=== PATIENT | female | born 1965 | race African-American/Black ===

== ENCOUNTER 2016-11-30 13:00 | Inpatient (IN) | payer MEDICAID, OTHER ==
[~2016-11-30] VITALS: Ht 160 cm; Wt 129.3 kg
[~2016-11-30 13:00] MED LIST: FLUCONAZOLE100 MG ORAL; HYDRALAZINE HCL50 MG ORAL; LEVAQUIN750 MG ORAL; METRONIDAZOLE500 MG ORAL; TRAMADOL HCL50 MG ORAL
[2016-11-30 13:15] VITALS: BP 167/104
[2016-11-30] MEDS ORDERED: Morphine Sulfate 4mg/ml Inj IVP ONE ×3 (13:45→19:45)
--- NOTE | 2016-11-30 14:11 | Emergency Room Report ---
History of Present Illness General Chief Complaint: Abdominal Pain Source: Patient Present Illness HPI 51-year-old female history of hypertension, bowel perforation in 2016, ventral hernia p/w abdominal pain 4 days. Patient states pain started gradually, generalized all over abdomen, non radiating, sharp/burning in nature, intermittent. No relieving or exacerbating factors. Severity is currently 6/10. Reports that she had nausea and vomiting today, 2 episodes nonbilious nonbloody One episode of watery nonbloody diarrhea Denies any recent travel, denies any recent antibiotic use pt passing gas/stool Allergies: Coded Allergies: No Known Allergies (Unverified , 10/25/15) Patient History Past Medical History: see triage record Past Surgical History: none Pertinent Family History: none Reviewed Nursing Documentation: PMH: Agreed, PSxH: Agreed Nursing Documentation-PMH Hx Cardiac Problems: Yes Hx Hypertension: Yes Hx Gastrointestinal Problems: Yes Hx Headaches: Yes Hx Fatigue: Yes Review of Systems All Other Systems: negative except mentioned in HPI Physical Exam Vital Signs Date Time Temp Pulse Resp B/P (MAP) Pulse Ox O2 Delivery O2 Flow Rate FiO2 11/30/16 13:07 98.2 134 18 167/127 96 Room Air Sp02 EP Interpretation: reviewed, normal General Appearance: alert, GCS 15, non-toxic, moderate distress Head: normocephalic, atraumatic Eyes: bilateral eye normal inspection, bilateral eye PERRL, bilateral eye EOMI ENT: normal ENT inspection, normal pharynx, normal voice, moist mucus membranes Neck: normal inspection, full range of motion, supple Respiratory: normal inspection, lungs clear, normal breath sounds, no respiratory distress, no retraction, no wheezing, speaking full sentences, chest symmetrical Cardiovascular #1: normal inspection, no edema, normal capillary refill, tachycardia Cardiovascular #2: 2+ radial (R), 2+ radial (L) Gastrointestinal: soft, non-distended, no guarding, other - Round abdomen, it generalized tenderness all over her abdomen, not peritoneal, no guarding or rebound Musculoskeletal: normal inspection, back normal, normal range of motion, non- tender Neurologic: normal inspection, alert, oriented x3, responsive, motor strength/ tone normal, sensory intact, normal gait, speech normal Psychiatric: normal inspection, judgement/insight normal, memory normal Skin: normal inspection, normal color, no rash, warm/dry, well hydrated, normal turgor Medical Decision Making ER Course 51-year-old female with abdominal pain for 4 days Differential Diagnosis: Gastritis, gastroenteritis, cholecystitis, appendicitis, diverticulitis, SBO, mesenteric ischemia, bowel perforation, cardiac, UTI/pyelo Plan: Basic labs, ua, ekg pain control, IVF CT abdopelvis ER course: Disposition: Signed out patient to Dr. Henson 51-year-old female history of bowel for perforation 2016 Abdominal pain for 4 days Initially tachycardic which came down with pain medication Pending labs Pending CT abdopelvis Please note that this Emergency Department Report was dictated using [employer] fusion middleware architect technology software, occasionally this can lead to erroneous entry secondary to interpretation by the dictation equipment EKG Diagnostic Results EP Interpretation: Yes Rate: Tachycardic Rhythm: Normal sinus rhythm ST Segments: T-wave inversion in aVL, Q waves I and aVL ASA given to patient: no Rhythm Strip EP Interpretation: Yes Rate: 116 Rhythm: NSR, no PVCs, no ectopy CT/MRI/US Diagnostic Results CT/MRI/US Diagnostic Results : Imaging Test Ordered: CT abdo pelvis with IV contrast Last Vital Signs Date Time Temp Pulse Resp B/P (MAP) Pulse Ox O2 Delivery O2 Flow Rate FiO2 11/30/16 13:07 98.2 134 18 167/127 96 Room Air Stephenie Morales M.D. Nov 30, 2016 14:10
[2016-11-30 14:34] LABS: BASOPHILS % (AUTO) 0.5 % (0.0-2.0); EOSINOPHILS % (AUTO) 0.1 % (0.0-3.0); LYMPHOCYTES % (AUTO) 13.1 % (20.0-45.0); MEAN CORPUSCULAR HEMOGLOBIN 31.4 PG (27.0-31.0); MEAN CORPUSCULAR HGB CONC 31.2 G/DL (32.0-36.0); MEAN CORPUSCULAR VOLUME 101 FL (80-99); MEAN PLATELET VOLUME 8.2 FL (6.5-10.1); NEUTROPHILS % (AUTO) 82.3 % (45.0-75.0); PLATELET COUNT 322 K/UL (150-450); RED BLOOD COUNT 4.86 M/UL (4.20-5.40); RED CELL DISTRIBUTION WIDTH 11.3 % (11.6-14.8); WHITE BLOOD COUNT 9.2 K/UL (4.8-10.8)
[2016-11-30 14:39] LABS: APPEARANCE,URINE TURBID; KETONES,URINE 1+ (NEGATIVE); LEUKOCYTE ESTERASE ,URINE 1+ (NEGATIVE); NITRITE,URINE POSITIVE (NEGATIVE); PH,URINE 5 (4.5-8.0); PROTEIN,URINE 4+ (NEGATIVE); UROBILINOGEN,URINE 4 MG/DL (0.0-1.0)
[2016-11-30 14:50] LABS: ALANINE AMINOTRANSFERASE 31 U/L (12-78); ALBUMIN/GLOBULIN RATIO 0.8 (1.0-2.7); ANION GAP 13 mmol/L (5-15); ASPARTATE AMINO TRANSFERASE 27 U/L (15-37); CALCIUM 10.5 MG/DL (8.5-10.1); CARBON DIOXIDE 26 MMOL/L (21-32); CHLORIDE 102 MMOL/L (98-107); CREATININE 0.6 MG/DL (0.55-1.30); GLOMERULAR FILTRATION RATE > 60 mL/min (>60); LIPASE 64 U/L (73-393); POTASSIUM 4.1 MMOL/L (3.5-5.1); SODIUM 141 MMOL/L (136-145); TOTAL PROTEIN 9.3 G/DL (6.4-8.2)
[2016-11-30 15:06] LABS: BILIRUBIN,DIRECT 0.2 MG/DL (0.0-0.3)
[2016-11-30 15:10] LABS: AMORPHOUS SEDIMENT,UR MANY /LPF; BACTERIA,URINE MODERATE /HPF; RBC,URINE 0-2 /HPF (0 - 2); SQUAMOUS EPITHELIAL CELL,UR OCCASIONAL /LPF (NONE/OCC)
[2016-11-30 15:19] LABS: ICTOTEST NEGATIVE
[2016-11-30 15:22] VITALS: BP 158/99
--- NOTE | 2016-11-30 16:30 | Diagnostic Imaging Report ---
Clinical Indication: Abdominal pain Technique: Patient ingested oral contrast IV administration nonionic contrast. Venous phase spiral acquisition obtained through the abdomen and pelvis. Multiplanar reconstructions were generated. Total dose length product 1879 mGycm. CTDIvol(s) 19 and 19 mGy. Dose reduction achieved using automated exposure control Comparison: 11/26/2015 Findings: There is evidence of a supraumbilical midline incision. Previously demonstrated edema along the incision is no longer evident. However, there is now an incisional hernia which contains a loop of distal ileum. Small bowel proximal to the hernia is dilated. Small bowel distal to the hernia is nondilated. Small bowel wall within the hernia is equivocally mildly thickened. There is slight infiltration of the fat within the hernia sac. No fluid is seen within the hernia sac. Small bowel anastomotic sutures are again seen the right mid abdomen. The appendix is normal. No definite evidence of diverticulosis or diverticulitis. No small bowel wall thickening. No free or loculated intraperitoneal air or fluid is evident. The distal esophagus, stomach, duodenum are unremarkable. The liver, gallbladder, bile ducts, pancreas, spleen, adrenals, is are unremarkable. Again demonstrated is massively enlarged uterus, measures 17 cm in length by 12 cm AP. Again demonstrated a 7.7 cm fat-containing left ovarian mass, consistent with a dermoid. Included lung bases are clear. The bones are unremarkable. Impression: Distal small bowel obstruction, due to herniation of a loop of distal ileum into an incisional hernia. No definite evidence of strangulation Evidence of prior bowel surgery Massively enlarged uterus, presumably due to uterine fibroids, also previously described. Left ovarian dermoid, also previously described Provided findings phoned to Dr. Jiang emergency room at the time of interpretation The CT scanner at [facility] is accredited by the [employer] and the scans are performed using protocols designed to limit radiation exposure to as low as reasonably achievable to attain images of sufficient resolution adequate for diagnostic evaluation.
[2016-11-30 18:20] VITALS: BP 145/88
--- NOTE | 2016-11-30 18:33 | General Progress Note ---
Progress Note Progress Note Chart reviewed, pt examined, consult dictated #[id number]. Impression: partial small bowel obstruction due to ventral hernia. Plan: IV fluids, NG suction, repeat abdominal series in AM. Padilla Kendrick MD Nov 30, 2016 18:33
[2016-11-30] MEDS ORDERED: BIOTIN5000 MCG PO (19:10)
[2016-11-30] MEDS ORDERED: TUMERSAID TABL1 EACH PO (19:10)
[2016-11-30] MEDS ORDERED: MULTI VITAMIN1 EACH ORAL (19:10)
[2016-11-30 19:20] VITALS: BP 151/89
[2016-11-30 20:30] VITALS: BP 145/89
[2016-11-30] MEDS ORDERED: Acetaminophen 650 MG SUPP RECTAL PRN (22:30)
--- NOTE | 2016-11-30 22:30 | Consultation ---
DATE OF CONSULTATION: 11/30/2016 SURGICAL CONSULTATION REASON FOR CONSULTATION: Abdominal pain and small bowel obstruction. HISTORY OF PRESENT ILLNESS: This 51-year-old female, presented with a four-day history of abdominal pain. The pain started gradually and then became generalized. She developed problems with nausea and vomiting yesterday. She also had some watery nonbloody diarrhea earlier today. The patient has a history of surgery one year ago for a ventral hernia and allegedly a bowel perforation. She was hospitalized one year ago for this problem. PAST MEDICAL HISTORY: See history of present illness. PAST SURGICAL HISTORY: She denies any previous surgery other than the laparotomy one year ago. MEDICATIONS: Hydralazine 50 mg t.i.d. ALLERGIES: None known. SOCIAL HISTORY: Tobacco, none. Alcohol, occasional wine. FAMILY HISTORY: Negative for diabetes. REVIEW OF SYSTEMS: Essentially negative. She denies any history of migraine headaches. There is no history of asthma or angina. She is a 2 para 2 female, whose last menstrual period was approximately one year ago. PHYSICAL EXAMINATION: GENERAL: Reveals an obese, well-developed and well-nourished female, in no acute distress. VITAL SIGNS: Temperature 98.2 degrees, blood pressure 167/104, pulse 115, and respirations 18. HEENT: Normocephalic. Pupils are equal and reactive to light. There was no scleral icterus. NECK: Supple without adenopathy. LUNGS: Clear. HEART: Showed a regular rhythm. ABDOMEN: Abdomen was protuberant. There is a healed midline scar in the supraumbilical region. Bowel sounds were present and normoactive. There were no rushes. There is some tenderness surrounding the umbilicus more specifically in the supraumbilical region. There is a mass sensation, which is not reducible. EXTREMITY: Showed no clubbing, cyanosis, or edema. DIAGNOSTIC DATA: A CT scan of the abdomen confirms the presence of an incisional hernia, which contains a loop of distal ilium. The small bowel proximal to the hernia is dilated. The small bowel distal to the hernia is nondilated. The small bowel within the hernia was equivocally mildly thickened. There is slight infiltration of the surrounding fat within the hernia sac. There was no fluid seen within the hernia sac. A small anastomotic sutures were again seen in the right mid abdomen. The appendix appeared normal. There was no evidence of diverticulosis or diverticulitis. There was no small bowel wall thickening. There was no free air or loculated intraperitoneal fluid. The uterus was massively enlarged measuring 17 cm in length by 12 cm AP. There was a 7.7 cm fat containing left ovarian mass consistent with a dermoid cyst. LABORATORY STUDIES: CBC showed a white blood count of 9200, hemoglobin 15.3 grams percent, hematocrit 49%, and platelet count 322,000. Clinical chemistry shows sodium of 141, potassium 4.1, chloride 102, bicarbonate 26, BUN 10, creatinine 0.6, and glucose 123. Liver panel showed a total bilirubin of 1.1 and direct 0.2. SGOT normal at 31 and SGPT normal at 27. Alkaline phosphatase normal at 107. Lipase was low at 64. IMPRESSION: Ventral hernia with partial small bowel obstruction. PLAN: We will treat the patient with IV hydration and nasogastric suction for now. We will repeat her abdominal series in the morning. Padilla Kendrick M.D. DR: AMA JOB#: [id number] CC:
[2016-11-30] MEDS: HYDROmorphone 1mg/ml Carpuject IVP PRN (23:13)
[2016-11-30 23:56] VITALS: BP 135/76
--- NOTE | 2016-11-30 23:59 | Nephrology Progress Note ---
Assessment/Plan Problem List: (1) Morbid obesity (2) Ventral hernia with obstruction (3) UTI (urinary tract infection) (4) HTN (hypertension) (5) Nausea & vomiting (6) Partial small bowel obstruction Plan H&P dictated # [id number] Subjective Subjective H&P dictated # [id number] Objective Objective Last 24 Hour Vital Signs Date Time Temp Pulse Resp B/P (MAP) Pulse Ox O2 Delivery O2 Flow Rate FiO2 11/30/16 20:30 99.0 103 19 145/89 96 Room Air 11/30/16 19:33 98.3 113 18 145/88 96 Room Air 11/30/16 19:20 98.3 115 21 151/89 95 Room Air 11/30/16 18:20 98.3 113 18 145/88 96 Room Air 11/30/16 18:09 98.3 11/30/16 15:22 98.0 112 18 158/99 97 Room Air 11/30/16 14:27 98.3 11/30/16 13:15 98.2 115 18 167/104 95 Room Air 11/30/16 13:07 98.2 134 18 167/127 96 Room Air Laboratory Tests 11/30/16 13:51: White Blood Count 9.2, Red Blood Count 4.86, Hemoglobin 15.3, Hematocrit 49.0H, Mean Corpuscular Volume 101H, Mean Corpuscular Hemoglobin 31.4H, Mean Corpuscular Hemoglobin Concent 31.2L, Red Cell Distribution Width 11.3L, Platelet Count 322, Mean Platelet Volume 8.2, Neutrophils (%) (Auto) 82.3H, Lymphocytes (%) (Auto) 13.1L, Monocytes (%) (Auto) 4.0, Eosinophils (%) (Auto) 0.1, Basophils (%) (Auto) 0.5, Urine Color Brown, Urine Appearance Turbid, Urine pH 5, Urine Specific [place] 1.025, Urine Protein 4+H, Urine Glucose (UA) Negative, Urine Ketones 1+H, Urine Occult Blood 1+H, Urine Nitrite PositiveH, Urine Bilirubin 1+H, Urine Ictotest Negative, Urine Urobilinogen 4H, Urine Leukocyte Esterase 1+H, Urine RBC 0-2, Urine WBC 2-4, Urine Squamous Epithelial Cells Occasional, Urine Amorphous Sediment ManyH, Urine Bacteria ModerateH, Sodium Level 141, Potassium Level 4.1, Chloride Level 102, Carbon Dioxide Level 26, Anion Gap 13, Blood Urea Nitrogen 10, Creatinine 0.6, Estimat Glomerular Filtration Rate > 60, Glucose Level 123H, Lactic Acid Level 1.30, Calcium Level 10.5H, Total Bilirubin 1.1H, Direct Bilirubin 0.2, Aspartate Amino Transf (AST/ SGOT) 27, Alanine Aminotransferase (ALT/SGPT) 31, Alkaline Phosphatase 107, Troponin I 0.000, Total Protein 9.3H, Albumin 4.2, Globulin 5.1, Albumin/ Globulin Ratio 0.8L, Lipase 64L Height (Feet): 5 Height (Inches): 3.00 Weight (Pounds): 250 General Appearance: no apparent distress, alert EENT: normal ENT inspection Neck: non-tender, normal alignment, supple, normal inspection Cardiovascular: normal rate, regular rhythm Respiratory/Chest: normal breath sounds, no respiratory distress Abdomen: non tender, soft, no organomegaly Extremities: non-tender, normal inspection Neurologic: alert, oriented x 3, responsive, normal mood/affect Erin Packer N.P. Nov 30, 2016 23:59
[2016-12-01] VITALS (10 sets, daily range): BP systolic 123–154; BP diastolic 73–104
[2016-12-01] MEDS: HYDROmorphone 1mg/ml Carpuject IVP PRN ×3 (03:28→12:10)
[2016-12-01 07:21] LABS: BASOPHILS % (AUTO) 0.8 % (0.0-2.0); EOSINOPHILS % (AUTO) 1.2 % (0.0-3.0); LYMPHOCYTES % (AUTO) 26.9 % (20.0-45.0); MEAN CORPUSCULAR HEMOGLOBIN 33.9 PG (27.0-31.0); MEAN CORPUSCULAR HGB CONC 33.2 G/DL (32.0-36.0); MEAN CORPUSCULAR VOLUME 102 FL (80-99); MEAN PLATELET VOLUME 8.2 FL (6.5-10.1); MONOCYTES % (AUTO) 14.4 % (1.0-10.0); NEUTROPHILS % (AUTO) 56.8 % (45.0-75.0); PLATELET COUNT 295 K/UL (150-450); RED BLOOD COUNT 4.04 M/UL (4.20-5.40); RED CELL DISTRIBUTION WIDTH 11.6 % (11.6-14.8); WHITE BLOOD COUNT 4.8 K/UL (4.8-10.8)
[2016-12-01 07:23] LABS: AMYLASE 27 U/L (25-115); ANION GAP 11 mmol/L (5-15); CALCIUM 9.1 MG/DL (8.5-10.1); CARBON DIOXIDE 27 MMOL/L (21-32); CHLORIDE 105 MMOL/L (98-107); CREATININE 1.2 MG/DL (0.55-1.30); LIPASE 56 U/L (73-393); POTASSIUM 3.7 MMOL/L (3.5-5.1); SODIUM 143 MMOL/L (136-145)
--- NOTE | 2016-12-01 12:37 | General Progress Note ---
Progress Note Progress Note Afebrile VSS; Pt is not c/o abd pain. NG tube has 200 ml of bilious drainage. Abdomen is less distended. The ventral hernia is not reducible. We will proceed with a ventral hernia repair for release of her SBO, possible mesh placement. We will increase her iv rate to 150 ml. Padilla Kendrick MD Dec 01, 2016 12:37
--- NOTE | 2016-12-01 12:38 | Diagnostic Imaging Report ---
Indication: NG tube placement Comparison: 11/30/16 Single view of the abdomen obtained NG tube is satisfactory in position with both the tip and proximal port projected over the stomach. Dilated small bowel again noted unchanged. Impression: Limited evaluation showing satisfactory position of the nasogastric tube.
--- NOTE | 2016-12-01 13:34 | Diagnostic Imaging Report ---
Indication: Abdominal pain Comparison: 18:24 Single view of the abdomen obtained Findings: Study done 19:30 Nasogastric tube tip is in the distal esophagus. Multiple dilated loops of small bowel gas demonstrated. Impression: High riding nasogastric tube. Bowel obstruction
--- NOTE | 2016-12-01 13:34 | Diagnostic Imaging Report ---
Indication: Abdominal pain Comparison: None Single view of the abdomen obtained Multiple loops of dilated small bowel consistent with bowel obstruction demonstrated. Due to the nasogastric tube is in the distal esophagus. Impression: Small bowel obstruction.
--- NOTE | 2016-12-01 16:24 | GI Initial Consult Note ---
History of Present Illness General Date patient seen: Dec 01, 2016 Time patient seen: 13:00 Reason for Hospitalization: Abdominal Pain Referring physician: YEE BENJAMIN Reason for Consultation: ABDOMINAL PAIN Present Illness HPI 51-year-old female history of hypertension, bowel perforation in 2016, ventral hernia p/w abdominal pain 4 days. Patient states pain started gradually, generalized all over abdomen, non radiating, sharp/burning in nature, intermittent. No relieving or exacerbating factors. Severity is currently 6/10. Reports that she had nausea and vomiting today, 2 episodes nonbilious nonbloody One episode of watery nonbloody diarrhea Denies any recent travel, denies any recent antibiotic use pt passing gas/stool. GI consulted for abdominal pain. HPI as noted above. Pt seen on floor, awake alert with reports of N/V. CT AP reviews patient has ventral hernia with partial SBO in the distal ileum. Patient has history of hernia repair back in 2016. Lipase WNL, no leukocytosis noted. Surgery follows. Home Meds Reported Medications Biotin (BIOTIN) 5,000 Mcg Tab.rapdis, 5000 MCG PO 11/30/16 Multivitamin (MULTI VITAMIN DAILY) 1 Each Tablet, 1 TAB ORAL DAILY 11/30/16 Turm/Ging/Handy/Yuc/Demian/Efe/Hor (TUMERSAID TABLET) 1 Each Tablet, 1 EACH PO 11/30/16 Discontinued Scripts Hydralazine Hcl* (HYDRALAZINE HCL*) 50 Mg Tablet, 50 MG ORAL EVERY 8 HOURS, #90 TAB Prov:Jossue (Inez)Xi NP 11/10/15 Metronidazole* (FLAGYL*) 500 Mg Tablet, 500 MG ORAL THREE TIMES A DAY, #21 TAB 0 Refills Prov:Jossue (Vanchtein)Xi NP 11/09/15 Levofloxacin* (LEVAQUIN*) 750 Mg Tablet, 750 MG ORAL DAILY, #7 TAB Prov:Xi Marcum NP (Vanchtein) 11/09/15 Med list reviewed/reconciled: Yes Allergies: Coded Allergies: No Known Allergies (Unverified , 10/25/15) Patient History History Provided By: Patient PMH Narrative Past Medical History: see triage record Past Surgical History: none Pertinent Family History: none Reviewed Nursing Documentation: PMH: Agreed, PSxH: Agreed Nursing Documentation-PMH Hx Cardiac Problems: Yes Hx Hypertension: Yes Hx Gastrointestinal Problems: Yes Hx Headaches: Yes Hx Fatigue: Yes Review of Systems All Other Systems: negative except mentioned in HPI Physical Exam Vital Signs Date Time Temp Pulse Resp B/P (MAP) Pulse Ox O2 Delivery O2 Flow Rate FiO2 11/30/16 13:07 98.2 134 18 167/127 96 Room Air Sp02 EP Interpretation: reviewed, normal Labs Laboratory Tests Test 12/01/16 06:20 White Blood Count 4.8 K/UL (4.8-10.8) Red Blood Count 4.04 M/UL (4.20-5.40) L Hemoglobin 13.7 G/DL (12.0-16.0) Hematocrit 41.2 % (37.0-47.0) Mean Corpuscular Volume 102 FL (80-99) H Mean Corpuscular Hemoglobin 33.9 PG (27.0-31.0) H Mean Corpuscular Hemoglobin Concent 33.2 G/DL (32.0-36.0) Red Cell Distribution Width 11.6 % (11.6-14.8) Platelet Count 295 K/UL (150-450) Mean Platelet Volume 8.2 FL (6.5-10.1) Neutrophils (%) (Auto) 56.8 % (45.0-75.0) Lymphocytes (%) (Auto) 26.9 % (20.0-45.0) Monocytes (%) (Auto) 14.4 % (1.0-10.0) H Eosinophils (%) (Auto) 1.2 % (0.0-3.0) Basophils (%) (Auto) 0.8 % (0.0-2.0) Sodium Level 143 MMOL/L (136-145) Potassium Level 3.7 MMOL/L (3.5-5.1) Chloride Level 105 MMOL/L (98-107) Carbon Dioxide Level 27 MMOL/L (21-32) Anion Gap 11 mmol/L (5-15) Blood Urea Nitrogen 19 mg/dL (7-18) H Creatinine 1.2 MG/DL (0.55-1.30) # Estimat Glomerular Filtration Rate 57.0 mL/min (>60) Glucose Level 126 MG/DL (74-106) H Calcium Level 9.1 MG/DL (8.5-10.1) Amylase Level 27 U/L (25-115) Lipase 56 U/L (73-393) L General Appearance: well appearing, no apparent distress, alert Head: normocephalic EENT: PERRL/EOMI, normal ENT inspection Neck: supple Respiratory: normal breath sounds, no respiratory distress Cardiovascular: normal rate Gastrointestinal: normal inspection, non tender, soft, normal bowel sounds, non -distended Rectal: deferred Genitourinary: no CVA tenderness Musculoskeletal: normal inspection, back normal Neurologic: normal inspection, alert, oriented x3, responsive Psychiatric: normal inspection, judgement/insight normal, memory normal Skin: normal inspection, normal color, no rash, warm/dry, palpation normal, well hydrated Lymphatic: normal inspection, no adenopathy Current Medications Current Medications Medications (Trade) Dose Ordered Sig/Lj Route PRN Reason Start Time Stop Time Status Last Admin Dose Admin Acetaminophen (Tylenol) 650 mg Q6HR PRN RECTAL Mild Pain/Temp > 100.5 11/30/16 22:30 12/30/16 22:29 Amlodipine Besylate (Norvasc) 5 mg DAILY ORAL 12/01/16 09:00 12/31/16 08:59 Dextrose/ Electrolytes 1,000 ml @ 150 mls/hr Q6H40M IV 12/01/16 12:30 12/31/16 12:29 12/01/16 14:36 Hydralazine HCl (Apresoline) 10 mg Q8H PRN IV bp 11/30/16 23:45 12/30/16 23:44 Hydromorphone HCl (Dilaudid) 1 mg Q4H PRN IVP Severe Pain (Pain Scale 7-10) 11/30/16 22:30 12/07/16 22:29 12/01/16 12:10 Ondansetron HCl (Zofran) 4 mg Q6H PRN IVP Nausea & Vomiting 12/01/16 16:15 12/31/16 16:14 GI: Plan Problems: (1) Partial small bowel obstruction (2) Nausea & vomiting (3) Small bowel obstruction (4) Morbid obesity (5) Uncontrolled hypertension (6) Amphetamine abuse Plan fu surgical recs >> will proceed with a ventral hernia repair for release of her SBO, NPO + IVFs bowel decompression >> NGT to LIS pain mgmt serial monitoring repeat imaging prn abx fu labs Discussed with Dr. Medina. Thank you for this patient referral, we will follow. Kim Trimble N.P. Dec 01, 2016 16:24
--- NOTE | 2016-12-01 16:52 | Pre-Procedure Note/Attestation ---
Pre-Procedure Note/Attestation Complete Prior to Procedure Planned Procedure: not applicable Procedure Narrative: ventral hernia repair for release of small bowel obstruction, possible mesh placement Indications for Procedure Pre-Operative Diagnosis: Small bowel obstruction due to incarcerated ventral hernia Attestation I attest that I discussed the nature of the procedure; its benefits; risks and complications; and alternatives (and the risks and benefits of such alternatives ), prior to the procedure, with the patient (or the patient's legal sales representative printing supplies). I attest that, if there was a reasonable possibility of needing a blood transfusion, the patient (or the patient's legal sales representative printing supplies) was given the [facility] standardized written summary, pursuant to the [place] Blood Safety Act ([place] Health and Safety Code # 1645, as amended). I attest that I re-evaluated the patient just prior to the surgery and that there has been no change in the patient's H&P, except as documented below:none Padilla Kendrick MD Dec 01, 2016 16:52
[2016-12-01] MEDS ORDERED: Propofol 200mg/20ml IV ONE (18:12)
[2016-12-01] MEDS ORDERED: Lidocaine 1% MPF 10mg/ml 5ml ONE (18:19)
[2016-12-01] MEDS ORDERED: Glycopyrrolate 0.2mg/ml 1ml Vial ONE (18:19)
[2016-12-01] MEDS ORDERED: LR 1000ml ONE (18:19)
[2016-12-01] MEDS ORDERED: NS Irrig 1000ml ONE (18:19)
[2016-12-01] MEDS ORDERED: Ketamine 500mg Inj ONE (18:19)
[2016-12-01] MEDS ORDERED: fentaNYL 100 mcg/2 mL IV ONE (18:19)
[2016-12-01] MEDS ORDERED: Midazolam 2mg/2ml Inj ONE (18:19)
[2016-12-01] MEDS ORDERED: Lidocaine 1% Plain 30 ml INJ ONE (18:19)
[2016-12-01] MEDS ORDERED: Zemuron 50mg/5ml Inj IV ONE (18:19)
[2016-12-01] MEDS ORDERED: Neostigmine 1mg/ml 10ml Inj ONE (18:19)
[2016-12-01] MEDS ORDERED: oxyCODONE HCL/Acetaminophen 5/325mg ORAL PRN (18:45)
[2016-12-01] MEDS ORDERED: Acetaminophen (Non formulary) 100 ML IV ONE (18:45)
[2016-12-01] MEDS ORDERED: LORazepam Inj 2mg/ml 1ml IV PRN (18:45)
[2016-12-01] MEDS ORDERED: Ketorolac 30mg Inj IV PRN (18:45)
[2016-12-01] MEDS ORDERED: Norco 7.5mg/325mg tab ORAL PRN (18:45)
[2016-12-01] MEDS ORDERED: Hydromorphone 0.5mg/0.5ml inj IVP PRN (18:45)
[2016-12-01] MEDS ORDERED: Atropine Inj 1mg/10ml Syr IV PRN (18:45)
[2016-12-01] MEDS ORDERED: Norco 5mg/325mg tab ORAL PRN (18:45)
[2016-12-01] MEDS ORDERED: Ketorolac 60mg Inj IV PRN (18:45)
[2016-12-01] MEDS ORDERED: fentaNYL 100 mcg/2 mL IV PRN (18:45)
[2016-12-01] MEDS ORDERED: Midazolam 2mg/2ml Inj IVP PRN (18:45)
[2016-12-01] MEDS ORDERED: DiphenhydrAMINE 50mg/ml Inj IVP PRN (18:45)
[2016-12-01] MEDS ORDERED: Metoclopramide 10mg/2ml Inj IVP PRN (18:45)
--- NOTE | 2016-12-01 19:04 | Anethesia Preoperative Eval ---
Anesthesia Pre-op PMH/ROS General Date of Evaluation: Dec 01, 2016 Time of Evaluation: 18:19 Anesthesiologist: Elliott ASA Score: ASA 3 - Emergency Mallampati Score Class I : Soft palate, uvula, fauces, pillars visible Class II: Soft palate, uvula, fauces visible Class III: Soft palate, base of uvula visible Class IV: Only hard plate visible Mallampati Classification: Class III Surgeon: Aroldo Diagnosis: Small Bowel Obstruction Surgical Procedure: Ventral Hernia Repair For release of Small Bowel Obstruction Anesthesia History: none Family History: no anesthesia problems Allergies: Coded Allergies: No Known Allergies (Unverified , 10/25/15) Medications: see eMAR Past Medical History Cardiovascular: Reports: HTN, other - HL Gastrointestinal/Genitourinary: Reports: GERD Neurologic/Psychiatric: Reports: depression/anxiety Endocrine: Reports: DM Other: obesity - Morbid BMI 50 PSxH Narrative: Bowel SX Anesthesia Pre-op Phys. Exam Physician Exam Last Vital Signs Date Time Temp Pulse Resp B/P (MAP) Pulse Ox O2 Delivery O2 Flow Rate FiO2 12/01/16 12:00 97.6 68 20 139/90 96 Room Air Constitutional: NAD Neurologic: CN 2-12 intact Cardiovascular: RRR Respiratory: CTA Gastrointestinal: S/NT/ND Airway Exam Mallampati Score: Class III MO: limited ROM: limited Teeth: missing Anesthesia Pre-op A/P Labs Hematology Test 12/01/16 06:20 White Blood Count 4.8 K/UL (4.8-10.8) Red Blood Count 4.04 M/UL (4.20-5.40) L Hemoglobin 13.7 G/DL (12.0-16.0) Hematocrit 41.2 % (37.0-47.0) Mean Corpuscular Volume 102 FL (80-99) H Mean Corpuscular Hemoglobin 33.9 PG (27.0-31.0) H Mean Corpuscular Hemoglobin Concent 33.2 G/DL (32.0-36.0) Red Cell Distribution Width 11.6 % (11.6-14.8) Platelet Count 295 K/UL (150-450) Mean Platelet Volume 8.2 FL (6.5-10.1) Neutrophils (%) (Auto) 56.8 % (45.0-75.0) Lymphocytes (%) (Auto) 26.9 % (20.0-45.0) Monocytes (%) (Auto) 14.4 % (1.0-10.0) H Eosinophils (%) (Auto) 1.2 % (0.0-3.0) Basophils (%) (Auto) 0.8 % (0.0-2.0) Chemistry Test 12/01/16 06:20 Sodium Level 143 MMOL/L (136-145) Potassium Level 3.7 MMOL/L (3.5-5.1) Chloride Level 105 MMOL/L (98-107) Carbon Dioxide Level 27 MMOL/L (21-32) Anion Gap 11 mmol/L (5-15) Blood Urea Nitrogen 19 mg/dL (7-18) H Creatinine 1.2 MG/DL (0.55-1.30) # Estimat Glomerular Filtration Rate 57.0 mL/min (>60) Glucose Level 126 MG/DL (74-106) H Calcium Level 9.1 MG/DL (8.5-10.1) Amylase Level 27 U/L (25-115) Lipase 56 U/L (73-393) L Risk Assessment & Plan Assessment: ASA 3 E Plan: GA, BIS, Glidescope Status Change Before Surgery: No Pre-Antibiotics Dru Grams Ancef IV Given Within 1 Hr of Incision: Yes Time Given: 18:36 Gideon Gallagher MD Dec 01, 2016 19:04
--- NOTE | 2016-12-01 19:05 | Immediate Post-Op Evaluation ---
Immediate Post-Op Evalulation Immediate Post-Op Evalulation Procedure: Ventral Hernia Repair For release of Small Bowel Obstruction Date of Evaluation: Dec 01, 2016 Time of Evaluation: 20:53 IV Fluids: 1000 LR Blood Products: 0 Estimated Blood Loss: 40 Urinary Output: 0 Blood Pressure Systolic: 152 Blood Pressure Diastolic: 104 Pulse Rate: 108 Respiratory Rate: 16 O2 Sat by Pulse Oximetry: 92 Temperature (Fahrenheit): 98.2 Pain Score (1-10): 2 Nausea: No Vomiting: No Complications 0 Patient Status: awake, reacts, patent, extubated, none Hydration Status: adequate Dru Grams Ancef IV Given Within 1 Hr of Incision: Yes Time Given: 18:36 Gideon Gallagher MD Dec 01, 2016 19:05
[2016-12-01] MEDS ORDERED: Bupivacaine w/Epi 0.5% 30ml Vial INJ ONE (19:12)
--- NOTE | 2016-12-01 19:40 | 48 Hour Post Anesthesia Eval ---
Post Anesthesia Evaluation Procedure: Ventral Hernia Repair For release of Small Bowel Obstruction Date of Evaluation: Dec 01, 2016 Time of Evaluation: 23:11 Blood Pressure Systolic: 162 0: 98 Pulse Rate: 87 Respiratory Rate: 18 Temperature (Fahrenheit): 98.4 O2 Sat by Pulse Oximetry: 94 Airway: patent Nausea: No Vomiting: No Pain Intensity: 3 Hydration Status: adequate Cardiopulmonary Status: Stable Mental Status/LOC: patient returned to baseline Follow-up Care/Observations: 0 Post-Anesthesia Complications: 0 Follow-up care needed: N/A Gideon Gallagher MD Dec 01, 2016 19:40
--- NOTE | 2016-12-01 20:53 | Brief Operative Note ---
Immediate Post Operative Note Operative Note Pre-op Diagnosis: Small bowel obstruction due to incarcerated ventral hernia Procedure: Ventral hernia repair for release of small bowel obstruction, placement of Ventralex mesh Post-op Diagnosis: small bowel obstruction secondary to incarcerated ventral hernia Findings: consistent w/pre-op dx studies Surgeon: Juan Kendrick MD Refrigeration Engine Operator: Román Larose MD Anesthesiologist: Sharad Gallagher MD Anesthesia: general Specimen: yes Complications: none Condition: stable Fluids: 1000 ml crystalloid Estimated Blood Loss: minimal Drains: none Implant(s) used?: Yes - Ventralex mesh Padilla Kendrick MD Dec 01, 2016 20:53
[2016-12-01] MEDS ORDERED: LR 1000ml 1,000 ML IVLG SCH (21:00)
[2016-12-01] MEDS: D5 1/2NS w/KCl 20mEq 1,000 ML IV SCH (22:00)
--- NOTE | 2016-12-01 22:57 | Nephrology Progress Note ---
Assessment/Plan Problem List: (1) Small bowel obstruction (2) Ventral hernia with obstruction (3) HTN (hypertension) (4) Nausea & vomiting Plan GI and Surgery following. pending ventral hernia repair and release of SBO. IVF. Subjective Subjective NPO for surgery today. Objective Objective Last 24 Hour Vital Signs Date Time Temp Pulse Resp B/P (MAP) Pulse Ox O2 Delivery O2 Flow Rate FiO2 12/01/16 21:45 97.8 80 17 147/80 96 Nasal Cannula 3.0 12/01/16 21:32 97.2 12/01/16 21:32 97.2 12/01/16 21:30 82 15 145/85 98 Nasal Cannula 3.0 12/01/16 21:15 91 16 151/87 97 Nasal Cannula 3.0 12/01/16 21:00 93 20 148/90 96 Nasal Cannula 3.0 12/01/16 20:50 98 14 154/89 95 Nasal Cannula 3.0 12/01/16 20:42 98.2 111 16 152/104 97 Nasal Cannula 3.0 12/01/16 20:42 87 18 94 12/01/16 20:41 108 16 92 12/01/16 16:00 98.1 78 20 138/82 96 Room Air 12/01/16 12:00 97.6 68 20 139/90 96 Room Air 12/01/16 09:00 76 123/73 12/01/16 09:00 98.0 82 20 135/78 97 Room Air 12/01/16 04:00 97.7 76 20 123/73 97 Room Air 12/01/16 03:58 98.1 11/30/16 23:56 98.1 85 20 135/76 93 Room Air Intake and Output 12/01/16 12/02/16 19:00 07:00 Intake Total 550 ml 200 ml Output Total 80 ml 215 ml Balance 470 ml -15 ml Intake Oral 0 ml IV Total 550 ml 200 ml Output Urine Total 200 ml Gastric Drainage Total 80 ml 15 ml # Voids 3 Laboratory Tests 12/01/16 06:20: White Blood Count 4.8, Red Blood Count 4.04L, Hemoglobin 13.7, Hematocrit 41.2, Mean Corpuscular Volume 102H, Mean Corpuscular Hemoglobin 33.9H, Mean Corpuscular Hemoglobin Concent 33.2, Red Cell Distribution Width 11.6, Platelet Count 295, Mean Platelet Volume 8.2, Neutrophils (%) (Auto) 56.8, Lymphocytes (% ) (Auto) 26.9, Monocytes (%) (Auto) 14.4H, Eosinophils (%) (Auto) 1.2, Basophils (%) (Auto) 0.8, Sodium Level 143, Potassium Level 3.7, Chloride Level 105, Carbon Dioxide Level 27, Anion Gap 11, Blood Urea Nitrogen 19H, Creatinine 1.2#, Estimat Glomerular Filtration Rate 57.0, Glucose Level 126H, Calcium Level 9.1, Amylase Level 27, Lipase 56L Height (Feet): 5 Height (Inches): 3.00 Weight (Pounds): 285 General Appearance: no apparent distress Cardiovascular: normal rate, regular rhythm Respiratory/Chest: lungs clear Abdomen: soft, absent bowel sounds, distended Extremities: non-tender Neurologic: alert YEE BENJAMIN Dec 01, 2016 22:57
[2016-12-02] VITALS: BP_SYST 131; BP_SYST 92; BP_DIAS 54; BP_DIAS 72
[2016-12-02] MEDS: HYDROmorphone 1mg/ml Carpuject IVP PRN ×6 (00:23→20:40)
--- NOTE | 2016-12-02 00:45 | Operative Note - Dictated ---
DATE OF OPERATION: 12/01/2016 PREOPERATIVE DIAGNOSIS: Small-bowel obstruction secondary to incarcerated ventral hernia. POSTOPERATIVE DIAGNOSIS: Small-bowel obstruction secondary to incarcerated ventral hernia. PROCEDURE: Ventral hernia repair with release of small-bowel obstruction and placement of mesh. SURGEON: Padilla Kendrick M.D. SALES REPRESENTATIVE FACILITY SERVICES: Dr. Jeremy Larose. ANESTHESIA: General endotracheal by Dr. Gideon Gallagher. INDICATIONS FOR SURGERY: This 51-year-old morbidly obese female, presented to the emergency room with a four-day history of abdominal pain and a one-day history of nausea and vomiting. X-rays revealed a small bowel obstruction secondary to incarcerated supraumbilical hernia. The patient had a supraumbilical hernia one year prior. At that time, she developed a spontaneous perforation of the small bowel. She underwent a partial small-bowel resection at that time due to the peritoneal contamination, it was not possible to do a mesh closure on the hernia. OPERATIVE FINDINGS: Exploration of the supraumbilical region revealed a prominent ventral hernia. The hernia measured perhaps 5 centimeters in diameter. There was a well-formed sac containing a loop of small bowel. The small bowel was somewhat edematous, but was viable. There was no bloody fluid in the abdomen. The surrounding bowel proximal to the point of obstruction was somewhat dilated, but viable. The bowel distal to the site of obstruction was decompressed and was found to be comprising the terminal ilium. OPERATIVE TECHNIQUE: With the patient in the supine position after induction of adequate general endotracheal anesthesia, the abdomen was prepped and draped in sterile fashion. A time-out was called. A midline incision was made encompassing the old scar. The subcutaneous tissue was divided by sharp dissection with a scalpel. Several oozing points were cauterized. The hernia sac was identified and dissected off of the surrounding subcutaneous fat with electrocautery. The sac was dissected to its base. The base was comprised of the rectus fascia. An incision was made above the hernia sac resulting an entry into the anterior rectus sheath. The fascia was carefully dissected at the neck of the base with the sac isolated down to the rectus fascia. The sac was incised between two hemostats. There was some small amount of bloody fluid expressed. The sac was opened to the level of the fascia where a knuckle of small bowel was found. The bowel was edematous, but viable. The bowel was pulled up into the sac. There was an adhesion from the small bowel to the adjacent mesentery. The adhesion was divided with electrocautery. The fascial defect was opened further inferiorly in order to allow for release of the small bowel. The small bowel was placed back in the abdominal cavity. The hernia sac was trimmed to the level of the rectus fascia. The defect was bridged by placing a round Ventralex mesh. The mesh was tacked to the fashion in four corners with interrupted #1 PDS sutures. The fascia was reapproximated in the midline by placing a #1 Prolene sutures through the edges of the fascia and onto the mesh itself. The sutures were tightened completing the repair. The anterior rectus sheath above the defect was repaired with a running #1 PDS suture. The wound was copiously irrigated with normal saline. Hemostasis appeared adequate. The subcutaneous tissue was reapproximated with a running 2-0 Vicryl suture. The skin was closed with stainless steel martha. Sterile dressings were applied. The patient tolerated the procedure well and was returned to the recovery room in stable condition. ESTIMATED BLOOD LOSS: 20 mL. Padilla Kendrick M.D. DR: KESHAWN JOB#: [id number] CC:
[2016-12-02] MEDS: D5 1/2NS w/KCl 20mEq 1,000 ML IV SCH ×3 (02:20→12:22)
[2016-12-02 04:00] VITALS: BP 136/80
[2016-12-02 08:00] VITALS: BP 137/84
[2016-12-02 09:46] LABS: BASOPHILS % (AUTO) 0.7 % (0.0-2.0); EOSINOPHILS % (AUTO) 1.8 % (0.0-3.0); LYMPHOCYTES % (AUTO) 20.2 % (20.0-45.0); MEAN CORPUSCULAR HEMOGLOBIN 32.5 PG (27.0-31.0); MEAN CORPUSCULAR HGB CONC 31.7 G/DL (32.0-36.0); MEAN CORPUSCULAR VOLUME 103 FL (80-99); MEAN PLATELET VOLUME 7.6 FL (6.5-10.1); MONOCYTES % (AUTO) 13.2 % (1.0-10.0); NEUTROPHILS % (AUTO) 64.1 % (45.0-75.0); PLATELET COUNT 263 K/UL (150-450); RED BLOOD COUNT 3.79 M/UL (4.20-5.40); RED CELL DISTRIBUTION WIDTH 11.9 % (11.6-14.8); WHITE BLOOD COUNT 5.2 K/UL (4.8-10.8)
[2016-12-02 09:57] LABS: PROTHROMBIN TIME 10.5 SEC (9.30-11.50)
[2016-12-02 10:26] LABS: ANION GAP 6 mmol/L (5-15); CALCIUM 8.7 MG/DL (8.5-10.1); CARBON DIOXIDE 29 MMOL/L (21-32); CHLORIDE 110 MMOL/L (98-107); CREATININE 0.8 MG/DL (0.55-1.30); GLOMERULAR FILTRATION RATE > 60 mL/min (>60); POTASSIUM 3.8 MMOL/L (3.5-5.1); SODIUM 145 MMOL/L (136-145)
--- NOTE | 2016-12-02 10:47 | General Progress Note ---
Progress Note Progress Note Surgery: doing well since surgery. mild pain. no n/v/f/c. minimal ng tube output. mild flatus. afebrile, HD stable, recovering exam stable. abdomen soft, nd, mild incisional tenderness, dressings clean -d/c NG tube -clear liquids -d/c mcdowell -pt/ot Gordy Larose Dec 02, 2016 10:47
[2016-12-02] MEDS ORDERED: Ketorolac 30mg Inj IV PRN (11:00)
[2016-12-02 12:00] VITALS: BP 139/78
--- NOTE | 2016-12-02 16:01 | Cardiology Report ---
APPROVED REPORT EKG Measurement Heart [id number] Sinus tachycardia Left anterior fascicular block Left ventricular hypertrophy with repolarization abnormality Abnormal ECG
[2016-12-02 16:15] VITALS: BP 159/92
--- NOTE | 2016-12-02 17:00 | GI Progress Note ---
Assessment/Plan Problems: (1) Uncontrolled hypertension ICD Codes: I10 - Essential (primary) hypertension SNOMED: 43577418 (2) Partial small bowel obstruction ICD Codes: K56.600 - Partial intestinal obstruction, unspecified as to cause SNOMED: 367545916 (3) Nausea & vomiting ICD Codes: R11.2 - Nausea with vomiting, unspecified SNOMED: 81164403 (4) Small bowel obstruction ICD Codes: K56.609 - Unspecified intestinal obstruction, unspecified as to partial versus complete obstruction SNOMED: 638525420 (5) Morbid obesity ICD Codes: E66.01 - Morbid (severe) obesity due to excess calories SNOMED: 293508527, 98387697984858 (6) Ventral hernia with obstruction ICD Codes: K43.6 - Other and unspecified ventral hernia with obstruction, without gangrene SNOMED: 665436688 Status: progressing Status Narrative Discussed with Dr. Medina. Assessment/Plan s/p Ventral hernia repair with release of small-bowel obstruction and placement of mesh. fu surgical recs NPO + IVFs bowel decompression >> NGT to LIS pain mgmt serial monitoring repeat imaging prn abx fu labs Subjective Gastrointestinal/Abdominal: Reports: abdominal pain Objective Last 24 Hour Vital Signs Date Time Temp Pulse Resp B/P (MAP) Pulse Ox O2 Delivery O2 Flow Rate FiO2 12/02/16 16:15 97.6 78 21 159/92 97 Room Air 12/02/16 12:00 98.1 65 20 139/78 99 Room Air 12/02/16 09:00 56 136/80 12/02/16 08:00 97.9 71 16 137/84 96 Nasal Cannula 2.0 12/02/16 04:00 98.2 56 20 136/80 96 Room Air 12/02/16 04:00 98.2 56 20 136/80 96 Room Air 12/02/16 00:00 99.0 84 21 131/72 95 Nasal Cannula 12/02/16 00:00 99.7 66 20 92/54 92 Room Air 12/01/16 21:45 97.8 80 17 147/80 96 Nasal Cannula 3.0 12/01/16 21:32 97.2 12/01/16 21:32 97.2 12/01/16 21:30 82 15 145/85 98 Nasal Cannula 3.0 12/01/16 21:15 91 16 151/87 97 Nasal Cannula 3.0 12/01/16 21:00 93 20 148/90 96 Nasal Cannula 3.0 12/01/16 20:50 98 14 154/89 95 Nasal Cannula 3.0 12/01/16 20:42 98.2 111 16 152/104 97 Nasal Cannula 3.0 12/01/16 20:42 87 18 94 12/01/16 20:41 108 16 92 Intake and Output 12/02/16 12/03/16 19:00 07:00 Intake Total 437 ml Output Total 100 ml Balance 337 ml IV Total 437 ml Gastric Drainage Total 100 ml # Voids 1 Laboratory Tests Test 12/02/16 09:30 White Blood Count 5.2 K/UL (4.8-10.8) Red Blood Count 3.79 M/UL (4.20-5.40) L Hemoglobin 12.3 G/DL (12.0-16.0) Hematocrit 39.0 % (37.0-47.0) Mean Corpuscular Volume 103 FL (80-99) H Mean Corpuscular Hemoglobin 32.5 PG (27.0-31.0) H Mean Corpuscular Hemoglobin Concent 31.7 G/DL (32.0-36.0) L Red Cell Distribution Width 11.9 % (11.6-14.8) Platelet Count 263 K/UL (150-450) Mean Platelet Volume 7.6 FL (6.5-10.1) Neutrophils (%) (Auto) 64.1 % (45.0-75.0) Lymphocytes (%) (Auto) 20.2 % (20.0-45.0) Monocytes (%) (Auto) 13.2 % (1.0-10.0) H Eosinophils (%) (Auto) 1.8 % (0.0-3.0) Basophils (%) (Auto) 0.7 % (0.0-2.0) Prothrombin Time 10.5 SEC (9.30-11.50) Prothromb Time International Ratio 1.0 (0.9-1.1) Activated Partial Thromboplast Time 29 SEC (23-33) Sodium Level 145 MMOL/L (136-145) Potassium Level 3.8 MMOL/L (3.5-5.1) Chloride Level 110 MMOL/L (98-107) H Carbon Dioxide Level 29 MMOL/L (21-32) Anion Gap 6 mmol/L (5-15) Blood Urea Nitrogen 17 mg/dL (7-18) Creatinine 0.8 MG/DL (0.55-1.30) Estimat Glomerular Filtration Rate > 60 mL/min (>60) Glucose Level 100 MG/DL (74-106) Calcium Level 8.7 MG/DL (8.5-10.1) Height (Feet): 5 Height (Inches): 3.00 Weight (Pounds): 285 General Appearance: WD/WN, no apparent distress, alert, morbidly obese Cardiovascular: normal rate Respiratory/Chest: normal breath sounds, no respiratory distress Abdominal Exam: normal bowel sounds, non tender, soft Kim Trimble N.PMichael Dec 02, 2016 17:00
[2016-12-02 20:00] VITALS: BP 166/113
--- NOTE | 2016-12-02 20:15 | Nephrology Progress Note ---
Assessment/Plan Problem List: (1) Morbid obesity (2) Ventral hernia with obstruction (3) UTI (urinary tract infection) (4) HTN (hypertension) (5) Nausea & vomiting (6) Partial small bowel obstruction Plan 12/01 - s/p Ventral hernia repair with release of small-bowel obstruction and placement of mesh Pain management PRN Monitor lites, correct prn f/u with surgeons recommendation PT/OT per surgeons rec DVT prophylaxis with SCDs BP control AM labs Subjective Constitutional: Denies: no symptoms, chills, diaphoresis, fever, malaise, weakness, other HEENT: Denies: no symptoms, eye pain, blurred vision, tearing, double vision, ear pain, ear discharge, nose pain, nose congestion, throat pain, throat swelling, mouth pain, mouth swelling, other Genitourinary: Denies: no symptoms, burning, discharge, frequency, flank pain, hematuria, incontinence, pain, urgency, other Neurologic/Psychiatric: Denies: no symptoms, anxiety, depressed, emotional problems, headache, numbness, paresthesia, pre-existing deficit, seizure, tingling, tremors, weakness, other Subjective In bed, in no apparent distress, complained of abdominal pain, denies N/V Objective Objective Last 24 Hour Vital Signs Date Time Temp Pulse Resp B/P (MAP) Pulse Ox O2 Delivery O2 Flow Rate FiO2 12/02/16 16:15 97.6 78 21 159/92 97 Room Air 12/02/16 12:00 98.1 65 20 139/78 99 Room Air 12/02/16 09:00 56 136/80 12/02/16 08:00 97.9 71 16 137/84 96 Nasal Cannula 2.0 12/02/16 04:00 98.2 56 20 136/80 96 Room Air 12/02/16 04:00 98.2 56 20 136/80 96 Room Air 12/02/16 00:00 99.0 84 21 131/72 95 Nasal Cannula 12/02/16 00:00 99.7 66 20 92/54 92 Room Air 12/01/16 21:45 97.8 80 17 147/80 96 Nasal Cannula 3.0 12/01/16 21:32 97.2 12/01/16 21:32 97.2 12/01/16 21:30 82 15 145/85 98 Nasal Cannula 3.0 12/01/16 21:15 91 16 151/87 97 Nasal Cannula 3.0 12/01/16 21:00 93 20 148/90 96 Nasal Cannula 3.0 12/01/16 20:50 98 14 154/89 95 Nasal Cannula 3.0 12/01/16 20:42 98.2 111 16 152/104 97 Nasal Cannula 3.0 12/01/16 20:42 87 18 94 12/01/16 20:41 108 16 92 Intake and Output 12/02/16 12/03/16 19:00 07:00 Intake Total 887 ml 75 ml Output Total 100 ml Balance 787 ml 75 ml IV Total 887 ml 75 ml Gastric Drainage Total 100 ml # Voids 2 Laboratory Tests 12/02/16 09:30: White Blood Count 5.2, Red Blood Count 3.79L, Hemoglobin 12.3, Hematocrit 39.0, Mean Corpuscular Volume 103H, Mean Corpuscular Hemoglobin 32.5H, Mean Corpuscular Hemoglobin Concent 31.7L, Red Cell Distribution Width 11.9, Platelet Count 263, Mean Platelet Volume 7.6, Neutrophils (%) (Auto) 64.1, Lymphocytes (%) (Auto) 20.2, Monocytes (%) (Auto) 13.2H, Eosinophils (%) (Auto) 1.8, Basophils (%) (Auto) 0.7, Prothrombin Time 10.5, Prothromb Time International Ratio 1.0, Activated Partial Thromboplast Time 29, Sodium Level 145, Potassium Level 3.8, Chloride Level 110H, Carbon Dioxide Level 29, Anion Gap 6, Blood Urea Nitrogen 17, Creatinine 0.8, Estimat Glomerular Filtration Rate > 60, Glucose Level 100, Calcium Level 8.7 Height (Feet): 5 Height (Inches): 3.00 Weight (Pounds): 285 General Appearance: no apparent distress, alert EENT: normal ENT inspection Neck: non-tender, normal alignment Cardiovascular: normal rate, regular rhythm Respiratory/Chest: normal breath sounds, no respiratory distress Abdomen: soft, hypoactive bowel sounds, tender, other - obese, mid abd martha noted with dressing Extremities: trace edema Neurologic: alert, oriented x 3, responsive, normal mood/affect Erin Packer N.P. Dec 02, 2016 20:15
--- NOTE | 2016-12-02 23:29 | Diagnostic Imaging Report ---
APPROVED REPORT CPT Code: 93657 Present Symptoms Lower Extremity Pain: Bilateral Comments: Post Op BILATERAL: Imaging reveals a patent deep venous system bilaterally. There is no evidence of thrombus within the femoral, popliteal or tibial segments. The greater saphenous veins are also within normal limits. Doppler indicates normal spontaneous flow within these segments.
[2016-12-03] VITALS (9 sets, daily range): BP systolic 137–174; BP diastolic 69–112
[2016-12-03] MEDS: D5 1/2NS w/KCl 20mEq 1,000 ML IV SCH (00:55)
[2016-12-03] MEDS: HYDROmorphone 1mg/ml Carpuject IVP PRN ×2 (00:55→05:39)
[2016-12-03 07:38] LABS: ANION GAP 7 mmol/L (5-15); CALCIUM 9.1 MG/DL (8.5-10.1); CARBON DIOXIDE 28 MMOL/L (21-32); CHLORIDE 104 MMOL/L (98-107); CREATININE 0.6 MG/DL (0.55-1.30); GLOMERULAR FILTRATION RATE > 60 mL/min (>60); POTASSIUM 3.6 MMOL/L (3.5-5.1); SODIUM 139 MMOL/L (136-145)
[2016-12-03 07:58] LABS: BASOPHILS % (AUTO) 1.5 % (0.0-2.0); EOSINOPHILS % (AUTO) 2.2 % (0.0-3.0); MEAN CORPUSCULAR HEMOGLOBIN 33.2 PG (27.0-31.0); MEAN CORPUSCULAR HGB CONC 32.5 G/DL (32.0-36.0); MEAN CORPUSCULAR VOLUME 102 FL (80-99); MEAN PLATELET VOLUME 7.8 FL (6.5-10.1); MONOCYTES % (AUTO) 10.6 % (1.0-10.0); NEUTROPHILS % (AUTO) 67.6 % (45.0-75.0); PLATELET COUNT 270 K/UL (150-450); RED BLOOD COUNT 3.79 M/UL (4.20-5.40); RED CELL DISTRIBUTION WIDTH 11.4 % (11.6-14.8); WHITE BLOOD COUNT 6.9 K/UL (4.8-10.8)
--- NOTE | 2016-12-03 08:30 | HX and Phyl Repo 2 Sig ---
DATE OF ADMISSION: 11/30/2016 HISTORY OF PRESENT ILLNESS: The patient is a 51-year-old female with past medical history significant for hypertension and hernia repair in 2010 who presented to the emergency room with abdominal pain, which was started a couple of days ago and got increasingly worse, which prompted her visit to the emergency room. She also did report some nausea and vomiting yesterday and further stated that she has been having diarrhea for the past four days. She denies any chest pain. No fever. No chills. She stated that the pain is on the umbilical region, nonradiating. Denies any dizziness. No loss of consciousness. She described the pain as sharp, intensity is about 10/10. She stated that pain is similar to the last abdominal pain prior to her hernia repair. She is lying in bed, in no apparent distress. She says pain is tolerable at this time. PAST MEDICAL HISTORY: Significant for hypertension. PAST SURGICAL HISTORY: Hernia repair in 2016. ALLERGIES: She has no known allergies. SOCIAL HISTORY: She denies smoking. Drinks alcohol occasionally. Denies any illicit drug use. She lives at home with family. MEDICATIONS: Home medications include Biotin 5000 mcg p.o. daily and multivitamin tablet one p.o. daily. REVIEW OF SYSTEMS: A full 12-point review of system was reviewed with the patient and positives as stated in history of present illness. PHYSICAL EXAMINATION: GENERAL: This is a 51-year-old female, lying in the bed, in no apparent distress. VITAL SIGNS: Blood pressure 125/89, heart rate is 103, respiratory rate is 92, temperature is 99.0 degrees, and O2 saturation is 96% on room air. HEENT: Head is normocephalic and atraumatic with moist mucous membranes. Pupils are equal, round, and reactive to light and accommodation. NECK: Supple. No jugular venous distention noted. LUNGS: Clear to auscultation bilaterally. No crackles. No wheezing. CARDIOVASCULAR: She is mildly tachycardic. No murmurs noted. No gallop. ABDOMEN: Moderately distended. There appears to be a mass like impingement of the umbilical region. Also, noted was surgical scar. Bowel sounds positive in all four quadrants. EXTREMITIES: No edema. No cyanosis. No clubbing. NEUROLOGICAL: The patient is awake, alert, and oriented x3 with no focal deficits. LABORATORY AND DIAGNOSTIC DATA: CBC, white count 9.7, hemoglobin 15.2, hematocrit of 39.2 and platelet count of 322. BMP, sodium 141, potassium 4.1, chloride 102, bicarbonate is 26, BUN 10, creatinine 0.6, and blood glucose 123. Calcium is 3.5. Total bilirubin is 1.1. AST 27 ALT 31, and alkaline phosphatase is 107. Total protein is 9.3. Albumin 4.6. Globulin is 5.1. Lipase 64. Troponins are negative. Radiologic findings, CT abdomen and pelvis, impression is distal small-bowel obstruction due to herniation of a loop of distal ileum incisional hernia. No definitive evidence of strangulation. Evidence of prior bowel surgery. Markedly enlarged uterus. This may be due to uterine fibroids, also previously described. Left ovarian dermoid also previously described. Provided findings was then discussed with the ED doctor according to this interpretation. ASSESSMENT: 1. Partial small bowel obstruction. 2. Ventral hernia. 3. Abdominal pain. 4. Nausea and vomiting. 5. Hypertension. PLAN: The patient has been seen by the Surgeon, Dr. Causey. We will follow up with recommendations. Pain management as needed with morphine p.r.n. We will monitor lytes and correct as needed. Monitor her vitals as well. Start the patient on intravenous fluid D5 half normal saline at 75 mL an hour. At this time, we will keep the patient NPO. We will monitor vitals. Will add to the treatment plan for management of nausea and vomiting. Monitor the patient's overall response to treatment and follow up with recommendations. Erin Packer DR: AMANUEL JOB#: [id number] CC: MAX
--- NOTE | 2016-12-03 08:38 | General Progress Note ---
Progress Note Progress Note Surgery: no acute events. doing well. pain minimal. no n/v/f/c. passing flatus. tolerating diet. ambulatory. abd soft, nt/nd, BS+, incision c/d/i -advance diet -okay to discharge -follow up with our office next week for staple removal and wound check. call [phone] for appointment Gordy Larose Dec 03, 2016 08:38
[2016-12-03] MEDS ORDERED: Hydromorphone 0.5mg/0.5ml inj IVP PRN (10:45)
[2016-12-03] MEDS: Hydromorphone 0.5mg/0.5ml inj IVP PRN ×2 (12:34→17:46)
[2016-12-03] MEDS ORDERED: LOSARTAN POTASS50 MG ORAL (13:56)
[2016-12-03] MEDS ORDERED: NORVASC5 MG ORAL (13:57)
[2016-12-03] MEDS ORDERED: ACETAMINOPHEN325 M1 ORAL (13:58)
[2016-12-03] MEDS: Losartan 50mg tab ORAL SCH ×2 (14:18→18:31)
--- NOTE | 2016-12-03 16:46 | GI Progress Note ---
Assessment/Plan Problems: (1) Uncontrolled hypertension ICD Codes: I10 - Essential (primary) hypertension SNOMED: 58135095 (2) Partial small bowel obstruction ICD Codes: K56.600 - Partial intestinal obstruction, unspecified as to cause SNOMED: 269192791 (3) Nausea & vomiting ICD Codes: R11.2 - Nausea with vomiting, unspecified SNOMED: 04515702 (4) Small bowel obstruction ICD Codes: K56.609 - Unspecified intestinal obstruction, unspecified as to partial versus complete obstruction SNOMED: 404756089 (5) Morbid obesity ICD Codes: E66.01 - Morbid (severe) obesity due to excess calories SNOMED: 326265140, 44074291523357 (6) Ventral hernia with obstruction ICD Codes: K43.6 - Other and unspecified ventral hernia with obstruction, without gangrene SNOMED: 277610027 Status: stable, unchanged Status Narrative Discussed with Dr. Medina. Assessment/Plan okay for DC per GI standpoint s/p Ventral hernia repair with release of small-bowel obstruction and placement of mesh. fu surgical recs diet per surgery bowel decompression >> NGT to LIS pain mgmt serial monitoring repeat imaging prn abx fu labs Subjective Gastrointestinal/Abdominal: Reports: abdominal pain Objective Last 24 Hour Vital Signs Date Time Temp Pulse Resp B/P (MAP) Pulse Ox O2 Delivery O2 Flow Rate FiO2 12/03/16 16:00 98.2 68 18 153/92 96 Room Air 12/03/16 14:18 137/76 12/03/16 13:30 73 137/76 12/03/16 12:00 98.0 76 18 154/91 96 Room Air 12/03/16 11:30 174/97 12/03/16 10:00 159/99 12/03/16 08:53 70 162/69 12/03/16 08:15 98.2 70 21 162/69 97 Room Air 12/03/16 04:00 97.7 68 18 144/86 100 Room Air 2.0 12/03/16 00:00 98.4 73 20 163/112 97 Room Air 12/02/16 20:00 100.4 85 20 166/113 96 Room Air Intake and Output 12/03/16 12/04/16 19:00 07:00 Intake Total 240 ml Balance 240 ml Intake Oral 240 ml Laboratory Tests Test 12/03/16 04:40 White Blood Count 6.9 K/UL (4.8-10.8) Red Blood Count 3.79 M/UL (4.20-5.40) L Hemoglobin 12.6 G/DL (12.0-16.0) Hematocrit 38.7 % (37.0-47.0) Mean Corpuscular Volume 102 FL (80-99) H Mean Corpuscular Hemoglobin 33.2 PG (27.0-31.0) H Mean Corpuscular Hemoglobin Concent 32.5 G/DL (32.0-36.0) Red Cell Distribution Width 11.4 % (11.6-14.8) L Platelet Count 270 K/UL (150-450) Mean Platelet Volume 7.8 FL (6.5-10.1) Neutrophils (%) (Auto) 67.6 % (45.0-75.0) Lymphocytes (%) (Auto) 18.0 % (20.0-45.0) L Monocytes (%) (Auto) 10.6 % (1.0-10.0) H Eosinophils (%) (Auto) 2.2 % (0.0-3.0) Basophils (%) (Auto) 1.5 % (0.0-2.0) Sodium Level 139 MMOL/L (136-145) Potassium Level 3.6 MMOL/L (3.5-5.1) Chloride Level 104 MMOL/L (98-107) Carbon Dioxide Level 28 MMOL/L (21-32) Anion Gap 7 mmol/L (5-15) Blood Urea Nitrogen 7 mg/dL (7-18) Creatinine 0.6 MG/DL (0.55-1.30) Estimat Glomerular Filtration Rate > 60 mL/min (>60) Glucose Level 101 MG/DL (74-106) Calcium Level 9.1 MG/DL (8.5-10.1) Height (Feet): 5 Height (Inches): 3.00 Weight (Pounds): 285 General Appearance: WD/WN, no apparent distress, alert, obese Cardiovascular: normal rate Respiratory/Chest: normal breath sounds, no respiratory distress Abdominal Exam: normal bowel sounds, non tender, soft Extremities: non-tender Kim Trimble N.PMichael Dec 03, 2016 16:46
--- NOTE | 2016-12-04 11:04 | Discharge Summary ---
Discharge Summary Hospital Course Date of Admission Nov 30, 2016 at 17:00 Date of Discharge Dec 03, 2016 at 18:44 Admitting Diagnosis small bowel obstruction HPI Mikhail Quezada is a 51 year old female who was admitted on Nov 30, 2016 at 17:00 for Small Bowel Obstruction Hospital Course [id number] Discharge Discharge Disposition Patient was discharged to Home (01) Discharge Diagnoses: Abbi Fang NP Dec 04, 2016 11:04
--- NOTE | 2016-12-04 16:00 | Discharge Summary 2 SIG ---
DATE OF ADMISSION: 11/30/2016 DATE OF DISCHARGE: 12/03/2016 CONSULTANTS: 1. Padilla Kendrick M.D. 2. Martin Medina M.D. HOSPITAL COURSE: The patient is a 51-year-old female with past medical history significant for hypertension and hernia repair in 2010 presented to emergency room complaining of abdominal pain, which started a couple of days prior that got increasingly worse. She had some nausea and vomiting and been having diarrhea for the past four days. The pain was described to be located on the umbilical region and was nonradiating, described to be sharp in intensity and 10/10 on pain scale. On evaluation, CT of the abdomen and pelvis showed distal small bowel obstruction due to herniation of a loop of distal ileum into an incisional hernia. Surgical consultation was done. NG tube was inserted. She was continued on IV hydration. The patient had 200 mL of bilious drainage. Abdomen was less distended, however, ventral hernia was not reducible. On 12/01/2016, she underwent ventral hernia repair for release of small bowel obstruction with placement of a Ventralex mesh. Postoperatively, the patient had mild pain. There was minimal NG tube output with positive flatus. NG tube was eventually discontinued and was started on clear liquids. She was encouraged ambulation and underwent physical therapy and occupational therapy. Abdomen was soft, nontender with positive bowel sounds. Incision was clean and dry. Diet was advanced and was tolerating diet. She was eventually cleared for discharged home to follow up with surgery in a week for removal of martha and wound check. FINAL DIAGNOSES: 1. Small bowel obstruction secondary to incarcerated ventral hernia status post ventral hernia repair with release of small bowel obstruction and placement of mesh. 2. Hypertension. 3. Morbid obesity. DISPOSITION: The patient was discharged home for discharge medications list. FOLLOWUP: Follow up with surgery in a week. Chung Marquez M.D. I have been assigned to dictate discharge summary on this account and I was not involved in the patient's management. Abbi Fang N.P. DR: MIKAELA JOB#: [id number] CC: MAX
== END 2016-12-03 18:44 | disposition home or self-care (01) | DRG 227 ==
LOC: EMR 13:52 → 4E 17:00 → EDBEDREQ 17:33
PROC: 0WUF0JZ Supplement Abdominal Wall with Synthetic Substitute, Open Approach (ICD-10-PCS; principal; 2016-12-01 17:00)
DX: K43.6 Other and unspecified ventral hernia with obstruction, without gangrene (principal); Z68.43 Body mass index [BMI] 50.0-59.9, adult; I10 Essential (primary) hypertension; E66.01 Morbid (severe) obesity due to excess calories
CPT/HCPCS: 36415; 74000; 74177; 80048; 80053; 81003; 82150; 82248; 82962; 83605; 83690; 84484; 85025; 85610; 85730; 87086; 93005; 93970; 94003; 94150; 99285; J2250; J2405; J2710

== ENCOUNTER 2018-09-20 05:55 | Emergency (ER) | payer OTHER ==
[~2018-09-20] VITALS: Ht 160 cm; Wt 131.5 kg
[~2018-09-20 05:55] MED LIST changes: +ACETAMINOPHEN325 M1 ORAL; +BIOTIN5000 MCG PO; +LOSARTAN POTASS50 MG ORAL; +MULTI VITAMIN1 EACH ORAL; +NORVASC5 MG ORAL; +TUMERSAID TABL1 EACH PO
--- NOTE | 2018-09-20 06:00 | NUR ---
ED Nurse Note: Pt came from home c/o mid to left abd pain since 09/19. Pt stated 11/24 pain. n/v/d. Hx of hernia and stated she has been at [facility] 3 times for abd pain. Pt is AO x 4times, VSS, on room air no distress. MONROED seen Pt at bedside.
--- NOTE | 2018-09-20 06:16 | Emergency Room Report ---
History of Present Illness General Chief Complaint: Abdominal Pain Source: Patient (Ian Trimble MD) Present Illness HPI This is a 53-year-old female with a history of hypertension. She also had a history of laparotomy secondary to bowel perforation. Afterward she had bowel obstruction. She presents with chief complaint of abdominal pain. Onset for 2 days now. Pain is periumbilical. She had a hernia in that area. She also has nausea and vomiting. Pain is sharp 8 out of 10. Nothing made it better. Eating made it worse. (Ian Trimble MD) Allergies: Coded Allergies: No Known Allergies (Unverified , 10/25/15) Patient History Past Medical History: see triage record, old chart reviewed, HTN Past Surgical History: other Pertinent Family History: none Social History: Denies: smoking Last Menstrual Period: unk Now: No Immunizations: other Reviewed Nursing Documentation: PMH: Agreed; PSxH: Agreed (Ian Trimble MD) Nursing Documentation-PMH Hx Cardiac Problems: Yes Hx Hypertension: Yes Hx Gastrointestinal Problems: Yes - bowel perforation, ventral hernia Hx Headaches: Yes Hx Fatigue: Yes (Ian Trimble MD) Review of Systems Eye: Denies: eye pain, blurred vision ENT: Denies: ear pain, nose congestion, throat swelling Respiratory: Denies: cough, shortness of breath Cardiovascular: Denies: chest pain, palpitations Gastrointestinal: Reports: abdominal pain; Denies: diarrhea, nausea, vomiting Musculoskeletal: Denies: back pain, joint pain Skin: Denies: rash Neurological: Denies: headache, numbness Endocrine: Denies: increased thirst, increased urine Hematologic/Lymphatic: Denies: easy bruising All Other Systems: negative except mentioned in HPI (Ian Trimble MD) Physical Exam Vital Signs Date Time Temp Pulse Resp B/P (MAP) Pulse Ox O2 Delivery O2 Flow Rate FiO2 09/20/18 05:57 98.4 97 17 157/96 (116) 95 Room Air Vitals with high blood pressure Sp02 EP Interpretation: reviewed, normal General Appearance: well appearing, no apparent distress, alert, obese Head: normocephalic, atraumatic Eyes: bilateral eye PERRL, bilateral eye EOMI ENT: hearing grossly normal, normal pharynx Neck: full range of motion, supple, no meningismus Respiratory: chest non-tender, lungs clear, normal breath sounds Cardiovascular #1: regular rate, rhythm, no murmur Gastrointestinal: normal bowel sounds, no organomegaly, no bruit, non-distended , tenderness - Periumbilical, other - She had a large hard mass just above her umbilicus. I was able to reduce it., overweight Musculoskeletal: back normal, gait/station normal, normal range of motion Psychiatric: mood/affect normal (Ian Trimble MD) Medical Decision Making Diagnostic Impression: Primary Impression: Abdominal pain Qualified Codes: R10.84 - Generalized abdominal pain Additional Impressions: Morbid obesity Small bowel obstruction Ventral hernia with obstruction ER Course Presents with abdominal pain. They have bowel obstruction secondary to incarcerated hernia. I felt like I reduce the hernia. Labs and CT scan pending to rule out obstruction. If negative, she can go home. If positive she needs admission. I will sign this patient out to Dr. Pearce for final disposition. (Ian Trimble MD) ER Course Patient presents to the emergency department today complaining of abdominal pain. Differential considerations include acute pancreatitis, cholecystitis, gastritis, hepatitis, appendicitis, bowel obstruction, incarcerated hernia, strangulated hernia, perforation just to name a few. Given the severity of the patient's presentation I felt this is a highly complex patient. This patient required extensive workup. Patient was initially seen by Dr. Trimble and signed out to me for final disposition. I have evaluated patient as well. Follow-up patient laboratory work-up and CT scan. There is evidence of acute bowel obstruction likely secondary to a ventral hernia. Because of this an NG tube was placed. Case was discussed with Dr. Vick. Patient will be transferred to [facility]. Labs Test 09/20/18 06:15 White Blood Count 9.9 K/UL (4.8-10.8) Red Blood Count 4.60 M/UL (4.20-5.40) Hemoglobin 14.9 G/DL (12.0-16.0) Hematocrit 45.6 % (37.0-47.0) Mean Corpuscular Volume 99 FL (80-99) Mean Corpuscular Hemoglobin 32.3 PG (27.0-31.0) Mean Corpuscular Hemoglobin Concent 32.6 G/DL (32.0-36.0) Red Cell Distribution Width 12.9 % (11.6-14.8) Platelet Count 299 K/UL (150-450) Mean Platelet Volume 6.7 FL (6.5-10.1) Neutrophils (%) (Auto) 84.7 % (45.0-75.0) Lymphocytes (%) (Auto) 9.6 % (20.0-45.0) Monocytes (%) (Auto) 4.8 % (1.0-10.0) Eosinophils (%) (Auto) 0.1 % (0.0-3.0) Basophils (%) (Auto) 0.7 % (0.0-2.0) Urine Color Yellow Urine Appearance Clear Urine pH 5 (4.5-8.0) Urine Specific [place] 1.020 (1.005-1.035) Urine Protein 4+ (NEGATIVE) Urine Glucose (UA) Negative (NEGATIVE) Urine Ketones 1+ (NEGATIVE) Urine Blood 1+ (NEGATIVE) Urine Nitrite Negative (NEGATIVE) Urine Bilirubin 1+ (NEGATIVE) Urine Ictotest Negative (NEGATIVE) Urine Urobilinogen 4 MG/DL (0.0-1.0) Urine Leukocyte Esterase 1+ (NEGATIVE) Urine RBC 0-2 /HPF (0 - 2) Urine WBC 0-2 /HPF (0 - 2) Urine Squamous Epithelial Cells Few /LPF (NONE/OCC) Urine Bacteria Few /HPF (NONE) Sodium Level 140 MMOL/L (136-145) Potassium Level 3.9 MMOL/L (3.5-5.1) Chloride Level 101 MMOL/L (98-107) Carbon Dioxide Level 29 MMOL/L (21-32) Anion Gap 10 mmol/L (5-15) Blood Urea Nitrogen 8 mg/dL (7-18) Creatinine 0.8 MG/DL (0.55-1.30) Estimat Glomerular Filtration Rate > 60 mL/min (>60) Glucose Level 129 MG/DL (74-106) Calcium Level 9.4 MG/DL (8.5-10.1) Total Bilirubin 1.1 MG/DL (0.2-1.0) Direct Bilirubin 0.2 MG/DL (0.0-0.3) Aspartate Amino Transf (AST/SGOT) 27 U/L (15-37) Alanine Aminotransferase (ALT/SGPT) 27 U/L (12-78) Alkaline Phosphatase 105 U/L (46-116) Total Protein 9.0 G/DL (6.4-8.2) Albumin 4.1 G/DL (3.4-5.0) Globulin 4.9 g/dL Albumin/Globulin Ratio 0.8 (1.0-2.7) Lipase 38 U/L (73-393) (Glenroy Pearce MD) CT/MRI/US Diagnostic Results CT/MRI/US Diagnostic Results : Imaging Test Ordered: CT abdomen pelvis positive small bowel obstruction with hernia. (Glenroy Pearce MD) Last Vital Signs Date Time Temp Pulse Resp B/P (MAP) Pulse Ox O2 Delivery O2 Flow Rate FiO2 09/20/18 05:57 98.4 97 17 157/96 (116) 95 Room Air Status: unchanged (Ian Trimlbe MD) Status: improved (Glenroy Pearce MD) [facility] Condition: Serious Referrals: Hipolito Ansari MD (PCP) Ian Trimble MD Sep 20, 2018 06:16 Glenroy Pearce MD Sep 20, 2018 10:27
--- NOTE | 2018-09-20 06:23 | NUR ---
ED Nurse Note: Urine and blood sample sent to lab.
[2018-09-20] MEDS ORDERED: Morphine Sulfate 4mg/ml Inj (IV USE ONLY) IVP ONE ×2 (06:30→11:00)
[2018-09-20 06:34] LABS: APPEARANCE,URINE CLEAR; BILIRUBIN, URINE 1+ (NEGATIVE); GLUCOSE, URINE (UA) NEGATIVE (NEGATIVE); KETONES,URINE 1+ (NEGATIVE); LEUKOCYTE ESTERASE ,URINE 1+ (NEGATIVE); NITRITE,URINE NEGATIVE (NEGATIVE); PH,URINE 5 (4.5-8.0); PROTEIN,URINE 4+ (NEGATIVE); UROBILINOGEN,URINE 4 MG/DL (0.0-1.0)
[2018-09-20 06:35] VITALS: BP 147/96
[2018-09-20 06:41] LABS: COLOR,URINE YELLOW
[2018-09-20 06:44] LABS: ANION GAP 10 mmol/L (5-15); BLOOD UREA NITROGEN 8 mg/dL (7-18); CALCIUM 9.4 MG/DL (8.5-10.1); CARBON DIOXIDE 29 MMOL/L (21-32); CHLORIDE 101 MMOL/L (98-107); CREATININE 0.8 MG/DL (0.55-1.30); POTASSIUM 3.9 MMOL/L (3.5-5.1); SODIUM 140 MMOL/L (136-145)
[2018-09-20 06:50] LABS: BASOPHILS % (AUTO) 0.7 % (0.0-2.0); EOSINOPHILS % (AUTO) 0.1 % (0.0-3.0); HEMATOCRIT 45.6 % (37.0-47.0); HEMOGLOBIN 14.9 G/DL (12.0-16.0); LYMPHOCYTES % (AUTO) 9.6 % (20.0-45.0); MEAN CORPUSCULAR VOLUME 99 FL (80-99); MONOCYTES % (AUTO) 4.8 % (1.0-10.0); NEUTROPHILS % (AUTO) 84.7 % (45.0-75.0); PLATELET COUNT 299 K/UL (150-450); RED CELL DISTRIBUTION WIDTH 12.9 % (11.6-14.8); WHITE BLOOD COUNT 9.9 K/UL (4.8-10.8)
[2018-09-20 06:52] LABS: ALANINE AMINOTRANSFERASE 27 U/L (12-78); ALBUMIN 4.1 G/DL (3.4-5.0); ALBUMIN/GLOBULIN RATIO 0.8 (1.0-2.7); ALKALINE PHOSPHATASE 105 U/L (46-116); ASPARTATE AMINO TRANSFERASE 27 U/L (15-37); BILIRUBIN,TOTAL 1.1 MG/DL (0.2-1.0)
[2018-09-20 06:58] LABS: BILIRUBIN,DIRECT 0.2 MG/DL (0.0-0.3)
--- NOTE | 2018-09-20 07:15 | NUR ---
ED Nurse Note: Received report from offgoing nurse. Alert and oriented x 4, verbally responsive. Patient c/o 4/10 pain. No signs of facial grimacing noted. Breathing even and unlabored. NO SOB. Will continue to monitor.
[2018-09-20 07:32] VITALS: BP 163/97
--- NOTE | 2018-09-20 08:14 | NUR ---
ED Nurse Note: Patient was picked up for CT Abdomen with contrast.
--- NOTE | 2018-09-20 08:35 | NUR ---
ED Nurse Note: Patient came back from CT Abdomen. No SOB. Breathing even and unlabored.
--- NOTE | 2018-09-20 09:05 | NUR ---
Note naila in EDM - 09/20/18 at 0918 by LEORA ED Nurse Note: ULTRASOUND AT BEDSIDE.
--- NOTE | 2018-09-20 09:10 | Diagnostic Imaging Report ---
Indication: Abdominal pain Technique: Continuous helical transaxial imaging of the abdomen and pelvis was obtained from the lung bases to the pubic symphysis during intravenous contrast administration. Coronal 2-D reformats were also obtained. Study obtained in a Siemens sensation [address] Automatic Exposure Control was utilized. Total Dose length Product (DLP): 1072.[address] Dose Index Volume (CTDIvol): 19.51 mGy Comparison: 11/30/2016 Findings: There is significant artifact (decreased bodcai-lk-nmdir ratio and decreased resolution) related to body habitus limiting evaluation. The lung bases are clear. There is an umbilical hernia again demonstrated containing mesenteric fat and small bowel. This appears to be the point of transition between moderately distended proximal loops of small bowel and relative decompressed distal small bowel. There is no free air. The findings concerning for bowel obstruction. Interestingly the findings were noted on the prior exam as well in 2017 examination. Oral contrast was given. At the time of this scan there is contrast in the stomach and proximal small bowel but no contrast demonstrated more distally within the hernia or distal small bowel. There is no abscess or free fluid identified. There uterus is markedly enlarged probably on the basis of uterine fibroids and measures about 18 x 13 x 16 cm. 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 The kidneys, spleen, pancreas and liver, gallbladder appear unremarkable. IMPRESSION: Evidence of distal small bowel obstruction secondary to hernia containing small bowel at the level of umbilicus in the ventral abdominal wall. Similar findings on the 11/30/2016 CT. Enlarged uterus likely on the basis of multiple fibroids 8 cm left ovarian dermoid previously described on multiple occasions Diminished image quality due to large body The CT scanner at [facility] is accredited by the [employer] and the scans are performed using dose optimization techniques as appropriate to a performed exam including Automatic Exposure control.
[2018-09-20] MEDS ORDERED: BC POWDER PACK1 EAC1 PO (09:19)
[2018-09-20 09:30] VITALS: BP 140/80
--- NOTE | 2018-09-20 10:05 | NUR ---
ED Nurse Note: NGT inserted about 29inches on right nares. Gurgling sound heard upon auscultation and Xray will be obtained for placement verification. Patient well tolerated with minimal discomfort. No SOB, No dyspnea, breathing even and unlabored. Pulse oximetry reading maintained >94% throughout the procedure. Patient speaking full sentence.
--- NOTE | 2018-09-20 10:05 | NUR ---
Note naila in EDM - 09/20/18 at 1027 by MOIZ ED Nurse Note: NGT inserted about 29inches on left nares. Gurgling sound heard upon auscultation and Xray will be obtained for placement verification. Patient well tolerated with minimal discomfort. No SOB, No dyspnea, breathing even and unlabored. Pulse oximetry reading maintained >94% throughout the procedure.
[2018-09-20 10:08] VITALS: BP 149/97
--- NOTE | 2018-09-20 10:30 | NUR ---
ED Nurse Note: Xray obtained, Dr Pearce review result at the bedside and ordered to pull back NGT for 1 1/2 inch. Noted and carried out. NGT is measured about 27inch and connected to low intermittent suction. Noted with clear gastric drainage.
--- NOTE | 2018-09-20 10:49 | Diagnostic Imaging Report ---
Indication: NG tube placement Comparison: None Single view of the upper abdomen obtained Findings: NG tube is curled within the stomach lumen. IMPRESSION: NG tube satisfactory position
[2018-09-20 11:56] VITALS: BP 154/70
--- NOTE | 2018-09-20 11:56 | NUR ---
ED Nurse Note: Patient transfer to [facility] and spoke with Kaelyn ARTHUR to give report. Patient has NGT on right nares, patent and secured well. Has IV line 20g on left AC patent and intact. Alert and oriented x4, verbally responsive. Patient was picked up via gurney and accompanied by 2 EMT. Report given to ambulance personel. All belongings is given to patient.
== END 2018-09-20 11:56 | disposition short-term general hospital (02) ==
LOC: EMR 06:11
DX: R10.84 Generalized abdominal pain (principal); E66.01 Morbid (severe) obesity due to excess calories; K56.609 Unspecified intestinal obstruction, unspecified as to partial versus complete obstruction; K43.6 Other and unspecified ventral hernia with obstruction, without gangrene; I10 Essential (primary) hypertension; R11.2 Nausea with vomiting, unspecified; Z68.43 Body mass index [BMI] 50.0-59.9, adult
CPT/HCPCS: 36415; 74018; 74177; 80053; 81003; 82248; 83690; 85025; 96361; 96374; 96375; 96376; 99285; J2270; J2405; Q9967